=== PATIENT | female | born 1945 | race Caucasian/White ===

== ENCOUNTER → 2019-02-12 | Outpatient (CLI) | payer MEDICARE, BC ==
[~2019-02-12] MED LIST: AVAPRO PO; HYDROCHLOROTHIAZIDE PO; NORVASC PO
--- NOTE | 2019-02-12 11:53 | Diagnostic Imaging Report ---
TECHNIQUE: Magnetic resonance imaging of the LEFT KNEE was performed WITHOUT injected contrast. HISTORY: Left knee pain, evaluate for meniscus tear COMPARISON: None available. FINDINGS: LIGAMENTS AND TENDONS: ACL: Intact PCL: Intact Collateral ligaments: Intact Iliotibial band: Unremarkable Popliteal tendon: Intact Extensor mechanism: Intact JOINT: Menisci: Medial: Diffuse complex tearing with extrusion. Lateral: Degenerative signal without tear. Articular Cartilage: Medial Compartment: Diffuse high-grade cartilage loss with regions of full-thickness erosion and subchondral edema. Lateral Compartment: Diffuse partial thickness cartilage loss Patellofemoral Compartment: Diffuse partial thickness cartilage loss Joint Fluid: Joint effusion with synovitis BONE: Mild subchondral edema in the medial compartment. No acute fracture. SOFT TISSUES: Otherwise, unremarkable. IMPRESSION: Medial meniscus diffuse complex tearing with extrusion results in regions of full-thickness cartilage loss and subchondral edema. Joint effusion. Signed by: Dr. Kwesi Mai M.D. on 02/12/2019 11:50 AM
== END ==
LOC: MRI 10:27
PROVIDERS: ATTEND Internal Medicine
DX: S83.242A Other tear of medial meniscus, current injury, left knee, initial encounter (principal)

== ENCOUNTER 2022-06-01 16:22 | Observation (INO) | payer MEDICARE, BC ==
[~2022-06-01] VITALS: Ht 162.6 cm; Wt 60.4 kg
[2022-06-01] MEDS ORDERED: SODIUM CHLORIDE 0.9% 1000ML 1,000 ML IV STA (16:46)
[2022-06-01 17:00] LABS: BASOPHILS % 0.3 % (0.0-1.0); EOSINOPHILS % 0.1 % (0.0-6.0); HEMATOCRIT 37.5 % (34.2-44.1); HEMOGLOBIN 12.6 g/dL (12.0-16.0); LYMPHOCYTES # (AUTO) 0.9 (1.0-3.2); LYMPHOCYTES % 10.4 % (18.0-39.1); MEAN CORPUSCULAR HEMOGLOBIN 29.8 pg (28-32); MEAN CORPUSCULAR HGB CONC 33.6 g/dL (31-35); MEAN CORPUSCULAR VOLUME 88.7 fL (81-99); MONOCYTES # (AUTO) 0.4 (0.2-0.8); MONOCYTES % 4.6 % (4.4-11.3); NEUTROPHILS # (AUTO) 7.3 (2.1-6.9); NEUTROPHILS % 84.3 % (38.7-80.0); PLATELET COUNT 301 x10e3/uL (140-360); RED BLOOD COUNT 4.23 x10e6/uL (3.6-5.1); RED CELL DISTRIBUTION WIDTH 12.4 % (11.7-14.4)
[2022-06-01] MEDS ORDERED: DIAZEPAM 2 MG TAB PO ONE (17:00)
[2022-06-01 17:11] LABS: CLARITY,URINE CLEAR (CLEAR); COLOR,URINE YELLOW (YELLOW); KETONES,URINE NEGATIVE (NEGATIVE); LEUKOCYTE ESTERASE ,URINE NEGATIVE (NEGATIVE); NITRITE,URINE NEGATIVE (NEGATIVE); PROTEIN,URINE DIPSTICK NEGATIVE (NEGATIVE); URINE UROBILINOGEN 0.2 mg/dL (0.2 - 1)
[2022-06-01 17:19] LABS: ALBUMIN/GLOBULIN RATIO 1.4 (0.8-2.0); CALCIUM 9.1 mg/dL (8.4-10.2); CREATININE, SERUM 0.73 mg/dL (0.57-1.11); MAGNESIUM 1.6 MG/DL (1.3-2.1)
[2022-06-01 17:21] LABS: EPITHELIAL CELLS,URINE FEW /LPF; RBC,URINE 0-5 /HPF (0-5)
[2022-06-01 17:25] LABS: CREATINE KINASE MB 3.7 ng/mL (0-5.0)
[2022-06-01] MEDS ORDERED: POTASSIUM CHLORIDE 20 MEQ TAB CR PO STA (17:28)
[2022-06-01] MEDS ORDERED: ONDANSETRON HCL INJ 2MG/ML 2ML 2 MG/ML VIAL IV PRN (18:00)
[2022-06-01] MEDS: SODIUM CHLORIDE 0.9% 1000ML 1,000 ML IV SCH (18:35)
[2022-06-01] MEDS ORDERED: POTASSIUM CHLORIDE 20 MEQ TAB CR PO ONE (22:00)
[2022-06-01 22:20] VITALS: BP 157/73
[2022-06-01] MEDS ORDERED: AVAPRO300 MG PO (22:30)
[2022-06-01] MEDS ORDERED: NORVASC10 MG PO (22:30)
[2022-06-01] MEDS ORDERED: HYDROCHLOROTH12.5 MG (22:30)
[2022-06-01 22:33] VITALS: BP 157/73
[2022-06-02] VITALS: BP 145/76
[2022-06-02 01:18] LABS: CREATINE KINASE MB 3.7 ng/mL (0-5.0)
[2022-06-02] MEDS: SODIUM CHLORIDE 0.9% 1000ML 1,000 ML IV SCH (04:57)
[2022-06-02 05:52] LABS: BASOPHILS % 0.7 % (0.0-1.0); EOSINOPHILS # (AUTO) 0.1 (0.0-0.4); EOSINOPHILS % 1.5 % (0.0-6.0); HEMATOCRIT 35.1 % (34.2-44.1); HEMOGLOBIN 12.1 g/dL (12.0-16.0); LYMPHOCYTES # (AUTO) 2.3 (1.0-3.2); LYMPHOCYTES % 42.7 % (18.0-39.1); MEAN CORPUSCULAR HEMOGLOBIN 29.8 pg (28-32); MEAN CORPUSCULAR HGB CONC 34.5 g/dL (31-35); MEAN CORPUSCULAR VOLUME 86.5 fL (81-99); MONOCYTES # (AUTO) 0.6 (0.2-0.8); MONOCYTES % 11.9 % (4.4-11.3); NEUTROPHILS # (AUTO) 2.3 (2.1-6.9); NEUTROPHILS % 42.8 % (38.7-80.0); PLATELET COUNT 283 x10e3/uL (140-360); RED BLOOD COUNT 4.06 x10e6/uL (3.6-5.1); RED CELL DISTRIBUTION WIDTH 12.9 % (11.7-14.4)
[2022-06-02 06:37] LABS: ALBUMIN 3.4 g/dL (3.5-5.0); ALBUMIN/GLOBULIN RATIO 1.4 (0.8-2.0); ANION GAP 9.8 mmol/L (8-16); CALCIUM 8.6 mg/dL (8.4-10.2); CREATININE, SERUM 0.64 mg/dL (0.57-1.11); POTASSIUM 3.8 mmol/L (3.5-5.1)
[2022-06-02 07:01] LABS: CREATINE KINASE MB 3.4 ng/mL (0-5.0)
[2022-06-02 07:55] VITALS: BP 136/77
[2022-06-02 08:00] VITALS: BP 136/77
[2022-06-02] MEDS ORDERED: ZOLOFT50 MG PO (10:41)
[2022-06-02 11:57] VITALS: BP 138/83
== END 2022-06-02 12:16 | disposition home or self-care (01) ==
LOC: ER 16:48 → ERHOLD 17:59 → MED/SURG3 22:12
PROVIDERS: ADMIT Internal Medicine; ATTEND Internal Medicine
DX: E87.1 Hypo-osmolality and hyponatremia (principal); E87.6 Hypokalemia; Z88.8 Allergy status to other drugs, medicaments and biological substances; I10 Essential (primary) hypertension; F41.9 Anxiety disorder, unspecified; Z20.822 Contact with and (suspected) exposure to COVID-19; E86.0 Dehydration; R73.9 Hyperglycemia, unspecified
CPT/HCPCS: 0223U; 36415 ×2; 71046; 80053 ×2; 81001; 82550 ×2; 82553 ×2; 83036; 83735 ×2; 83880; 84484 ×2; 85025 ×2; 93005; 99284; G0378 ×2; J7030 ×2